=== PATIENT | female | born 1960 | race Caucasian/White ===

== ENCOUNTER → 2019-01-29 | Day surgery (SDC) | payer BC ==
--- NOTE | 2019-01-31 10:43 | OP ---
DATE OF OPERATION: 01/29/2019 PREOPERATIVE DIAGNOSIS: Right axillary abnormal lymph node and right breast intramammary lymph node 9 o'clock 10 cm from the nipple. POSTOPERATIVE DIAGNOSIS: Right axillary abnormal lymph node and right breast intramammary lymph node 9 o'clock 10 cm from the nipple. PROCEDURE: Right axillary and breast ultrasound-guided core biopsy with clip placement. ANESTHESIA: Local. ATTENDING SURGEON: Junior Dominguez MD ESTIMATED BLOOD LOSS: Minimal. COMPLICATIONS: None. DESCRIPTION OF PROCEDURE: Patient was made aware of the risks and benefits of the procedure and consented. She was placed in the supine position. The right axillary lymph node was approached first. Under sterile conditions with 1% Lidocaine for local anesthesia, a small dale was made in the skin. Using a 13-guage suction biopsy device under ultrasound guidance via inferior approach, multiple cores were obtained and submitted to Pathology. Likewise, under ultrasound guidance, a HydroMARK open-coil clip was placed. Well tolerated by patient. Steri-Strip and sterile bandage were applied. Then, the right breast 9 o'clock 10 cm from the nipple intramammary lymph node was approached. Under sterile conditions with 1% lidocaine for local anesthesia, a small dlae was made in the skin. Using a 13-guage suction biopsy device via lateral approach under ultrasound guidance, multiple cores were obtained and submitted to Pathology. Likewise, under ultrasound guidance, a bowtie clip was placed into the biopsy region. Well tolerated by patient. Steri-Strip and sterile bandage were applied. We will contact her with the results. JUNIOR DOMINGUEZ M.D. [id number]
--- NOTE | 2019-01-31 16:44 | PATH ---
Surgical Pathology Report Patient Name: NIKOLAY KERR [facility]. Rec. #: [id number] /Age/Gender: 1960 (Age: 59) / F Account: [id number] Location: [facility] Taken: 01/29/2019 Received: 01/29/2019 Reported: 01/31/2019 Physicians: Junior Dominguez M.D. Specimen(s) Received A: RIGHT AXILLARY NODE CORE BIOPSY B: RIGHT BREAST INTRAMAMMARY NODE Clinical History Nonpalpable lesion Ultrasound findings: Suspicious Final Diagnosis A. RIGHT AXILLA LYMPH NODE, CORE BIOPSY: METASTATIC MAMMARY CARCINOMA, CONSISTENT WITH LOBULAR CARCINOMA, MEASURING 1 CM IN GREATEST DIMENSION ON THIS SLIDE. SCANTY RESIDUAL LYMPHOID TISSUE IS PRESENT. B. RIGHT BREAST INTRAMAMMARY NODE (RIGHT BREAST 9:00, 10 CM FN), CORE BIOPSY: LYMPH NODE TISSUE WITH METASTATIC MAMMARY CARCINOMA, CONSISTENT WITH LOBULAR CARCINOMA, MEASURING 3MM IN GREATEST DIMENSION ON THIS SLIDE. Results of Estrogen Receptor (ER) and Progesterone Receptor (ND) studies performed on block "A" at [facility] are as follows: ER (clone [id number] mouse monoclonal antibody by [employer]): 100% nuclear staining with strong intensity (Positive). ND (clone16 mouse monoclonal antibody by [employer]): <10% nuclear staining with strong intensity (Low positive). Result of Her2 (IHC) performed on this specimen at [place], [place] ([id number]) interpreted at [facility] are as following: Her2 IHC (EP3 from [employer], formerly known as [id number], using Blue Polymer Refine detection kit): Negative (0) Comment: The tumor show similar morphology in specimen A and specimen B. Immunohistochemical stained slides (block A) performed at [place], [place] ([id number]) interpreted at [facility] show the tumor cells to be positive for AE1/3, mammoglobin, and Pilar-3; E-cadherin (block A and B) performed and interpreted at [facility] is negative. The morphology and immunophenotype support a lobular carcinoma. Positive and negative controls (internal if applicable) show appropriate results. Formalin fixation and cold ischemic times are within current ASCO/CAP recommendations for ER, ND and Her2 testing. Electronically Signed Thom Henley M.D. Gross Description A. Received in formalin labeled "right axilla lymph node," is a 1.5 x 1.2 x 0.2 cm aggregate of multiple segura-yellow, irregular to cylindrical portions of fibroadipose tissue. The formalin is filtered and the specimen is entirely submitted in one cassette. B. Received in formalin labeled "right breast biopsy 9:00, 10 cm fn," is a 1.5 x 1.1 x 0.2 cm aggregate of multiple segura-yellow, irregular to cylindrical portions of fibroadipose tissue. The formalin is filtered and the specimen is entirely submitted in one cassette. Time to formalin fixation: Less than one minute Total formalin fixation time: Approximately 6 hours. 01/29/2019 [facility]01/29/2019
== END | disposition home or self-care (01) ==
LOC: FRADUS 12:53 → FRADUS-SUR 12:53 → EDSTATUS 13:00
PROVIDERS: ATTEND Surgery Surgical Oncology
PROC: 0HBT3ZX Excision of Right Breast, Percutaneous Approach, Diagnostic (ICD-10-PCS; principal; 2019-01-29)
PROC: 07B53ZX Excision of Right Axillary Lymphatic, Percutaneous Approach, Diagnostic (ICD-10-PCS; 2019-01-29)
PROC: BH47ZZZ Ultrasonography of Upper Extremity (ICD-10-PCS; 2019-01-29)
DX: C79.81 Secondary malignant neoplasm of breast (principal); C77.3 Secondary and unspecified malignant neoplasm of axilla and upper limb lymph nodes; R59.0 Localized enlarged lymph nodes; N63.10 Unspecified lump in the right breast, unspecified quadrant; Z17.0 Estrogen receptor positive status [ER+]
CPT/HCPCS: 19083; 38505; 76942-TC; 87899; 88305-TC; 88342-TC; A4648

== ENCOUNTER → 2019-02-07 | Day surgery (SDC) | payer BC ==
--- NOTE | 2019-02-08 16:16 | PATH ---
Surgical Pathology Report Patient Name: NIKOLAY KERR [facility]. Rec. #: [id number] /Age/Gender: 1960 (Age: 59) / F Account: [id number] Location: [facility] Taken: 02/07/2019 Received: 02/07/2019 Reported: 02/08/2019 Physicians: Marzena Goodwin M.D. Specimen(s) Received RIGHT BREAST SPECIMEN WITH DENSITY Clinical History Nonpalpable lesion Mammographic findings: Suspicious Biopsy proven invasive lobular carcinoma in intramammary lymph node and right axillary lymph node Biopsy of breast in UOQ- 9 o'clock position done Clip seen in specimen from a biopsy 3-4 years ago, this revealed LCIS Final Diagnosis BREAST, RIGHT, DENSITY, STEREOTACTIC BIOPSY: INVASIVE LOBULAR CARCINOMA, CLASSICAL TYPE, MEASURING AT LEAST 6 MM IN GREATEST DIMENSION IN THIS MATERIAL. (SEE NOTE). LOBULAR CARCINOMA IN SITU (LCIS), CLASSICAL TYPE. Note: The carcinoma is negative for E-Cadherin (performed at [facility]), which supports lobular phenotype. See also concurrent right axillary and intramammary lymph node biopsies ([id number]). Results of ER and WY studies performed on block [address] [facility] are as follows: ER (clone [id number] mouse monoclonal antibody by [employer]): > 90 % nuclear staining with strong intensity (positive). WY (clone16 mouse monoclonal antibody by [employer]):~40 % nuclear staining with strong intensity (positive). Results of Her2 & Ki67 studies will be reported separately in an addendum. Positive and negative controls (internal if applicable) show appropriate results. Formalin fixation and cold ischemic times are within current ASCO/CAP recommendations for ER, WY and Her2 testing. Electronically Signed Nehal Melo M.D. Addendum Reported: 02/09/2019 Addendum Diagnosis Results of Her2 (IHC) & Ki-67 studies performed on block 1 at [place], [place] ([id number]) are as follows: Her2 IHC (EP3 from [employer], formerly known as [id number], using Blue Polymer Refine detection kit):0 (negative). Ki-67: ~10% (low proliferative index). Positive and negative controls (internal if applicable) show appropriate results. Nehal Melo M.D. Gross Description Received in formalin labeled "right breast with density," is a 4.3 x 2.0 x 0.3 cm aggregate of segura-yellow, irregular to cylindrical portions of fibroadipose tissue. The formalin is filtered and the specimen is entirely submitted in 2 cassettes. Time to formalin fixation: < 1 minute Total formalin fixation time: Approximately 8 hours. 02/07/201902/07/2019
== END | disposition home or self-care (01) ==
LOC: FMAMMOTONE 08:33
PROVIDERS: ATTEND Surgery Surgical Oncology
PROC: 0HBT3ZX Excision of Right Breast, Percutaneous Approach, Diagnostic (ICD-10-PCS; principal; 2019-02-07)
DX: C50.911 Malignant neoplasm of unspecified site of right female breast (principal); Z17.1 Estrogen receptor negative status [ER-]; N63.11 Unspecified lump in the right breast, upper outer quadrant
CPT/HCPCS: 19081; 87899; 88305-TC; 88342-TC; A4648